=== PATIENT | male | born 1955 ===

== ENCOUNTER → 2020-09-02 19:01 | Outpatient (ROUT) | payer OTHER, SELFPAY ==
[2020-09-02 19:32] LABS: Aspartate Aminotransferase 41 IU/L (17-59); BUN Creatinine Ratio 18.1 (6-22); Blood Urea Nitrogen 21 mg/dL (9-20); Calcium 9.8 mg/dL (8.4-10.2); Carbon Dioxide 25 mmol/L (22-32); Chloride 103 mmol/L (98-107); Cholesterol 134 mg/dL (140-199); Estimated Glomerular Filt Rate > 60.0 mL/min (>60); Glucose 102 mg/dL (80-110); HDL Cholesterol 31 mg/dL (40-60); HEMOLYSIS < 15 (0-50); LDL Cholesterol Calculated 67 mg/dL (<100); Potassium 4.5 mmol/L (3.4-5.1); Sodium 139 mmol/L (137-145); Triglycerides 180 mg/dL (35-150)
[2020-09-05 17:00] LABS: HIV 1 & 2 Ab/Ag 4th Gen Combo NEGATIVE (NEGATIVE)
== END ==
PROVIDERS: Visit Provider Internal Medicine
DX: Z20.9 Contact with and (suspected) exposure to unspecified communicable disease (principal); Z86.19 Personal history of other infectious and parasitic diseases; E11.42 Type 2 diabetes mellitus with diabetic polyneuropathy; E78.2 Mixed hyperlipidemia; N40.1 Benign prostatic hyperplasia with lower urinary tract symptoms
CPT/HCPCS: 80048; 80061; 84153; 84450; 86592; 86780; 87389; 87522